=== PATIENT | female | born 1985 | race Hispanic/Latino ===

== ENCOUNTER → 2024-03-19 10:23 | Outpatient (CLI) | payer OTHER, SELFPAY ==
[2024-03-19 11:11] LABS: Add Manual Diff / Slide Review NO; Basophils Absolute Auto 200 /uL (0-100); Basophils Percent Auto 2.4 % (0-2); Eosinophils Absolute Auto 300 /uL (0-450); Eosinophils Percent Auto 3.2 % (2-4); Hematocrit 39.5 % (36-46); Hemoglobin 13.5 g/dL (12.0-16.0); Lymphocytes Absolute Auto 2700 /uL (1100-4500); Lymphocytes Percent Auto 32.7 % (25-40); Mean Corpuscular HGB Conc 34.2 % (30-36); Mean Corpuscular Volume 87.7 fL (80-100); Monocytes Absolute Auto 400 /uL (0-900); Monocytes Percent Auto 5.3 % (3-14); Neutrophils Absolute Auto 4600 /uL (1500-7000); Neutrophils Percent Auto 56.4 % (50-75); Platelet Count 284 X10^3/uL (150-400); Red Cell Distribution Width 13.1 % (11.6-14.8); White Blood Cell Count 8.1 X10^3/uL (4.5-11.0)
[2024-03-19 12:20] LABS: Alanine Aminotransferase 17 IU/L (<35); Albumin 4.5 g/dL (3.5-5.0); Albumin Globulin Ratio 1.6 (1.0-2.8); Alkaline Phosphatase 64 U/L (38-126); Aspartate Aminotransferase 26 IU/L (14-36); BUN Creatinine Ratio 23.5 (6-22); Bilirubin Total 0.5 mg/dL (0.2-1.3); Blood Urea Nitrogen 16 mg/dL (7-17); Calcium 9.1 mg/dL (8.4-10.2); Carbon Dioxide 26 mmol/L (22-32); Chloride 104 mmol/L (98-107); Cholesterol 187 mg/dL (140-199); Estimated Glomerular Filt Rate > 60 mL/min (>60); Globulin 2.9 g/dL (1.7-4.1); Glucose 103 mg/dL (70-100); HDL Cholesterol 44 mg/dL (40-60); HEMOLYSIS 34 (0-50); LDL Cholesterol Calculated 125 mg/dL (<100); Potassium 4.3 mmol/L (3.4-5.1); Sodium 138 mmol/L (137-145); Total Protein 7.4 g/dL (6.3-8.2); Triglycerides 89 mg/dL (35-150)
[2024-03-19 12:43] LABS: Hemoglobin A1C% w Est Avg Glu 5.7 % (4.0-6.0)
== END ==
PROVIDERS: PCP Family Medicine; Referring Provider Family Medicine; Visit Provider Family Medicine
DX: R73.03 Prediabetes (principal); I10 Essential (primary) hypertension
CPT/HCPCS: 36415; 80053; 80061; 83036; 85025

== ENCOUNTER → 2024-07-02 08:16 | Outpatient (CLI) | payer OTHER, SELFPAY ==
[2024-07-02 08:38] LABS: Add Manual Diff / Slide Review NO; Basophils Absolute Auto 100 /uL (0-100); Basophils Percent Auto 1.5 % (0-2); Eosinophils Absolute Auto 200 /uL (0-450); Eosinophils Percent Auto 2.4 % (2-4); Hematocrit 40.4 % (36-46); Hemoglobin 13.7 g/dL (12.0-16.0); Lymphocytes Absolute Auto 2400 /uL (1100-4500); Lymphocytes Percent Auto 29.9 % (25-40); Mean Corpuscular HGB Conc 33.9 % (30-36); Mean Corpuscular Hemoglobin 29.9 PG (26-34); Mean Corpuscular Volume 88.4 fL (80-100); Monocytes Absolute Auto 400 /uL (0-900); Monocytes Percent Auto 5.3 % (3-14); Neutrophils Absolute Auto 5000 /uL (1500-7000); Neutrophils Percent Auto 60.9 % (50-75); Platelet Count 297 X10^3/uL (150-400); Red Blood Cell Count 4.57 X10^6/uL (4.0-5.2); White Blood Cell Count 8.2 X10^3/uL (4.5-11.0)
[2024-07-02 08:49] LABS: Hemoglobin A1C% w Est Avg Glu 5.7 % (4.0-6.0)
[2024-07-02 08:58] LABS: Alanine Aminotransferase 22 IU/L (<35); Albumin 4.5 g/dL (3.5-5.0); Albumin Globulin Ratio 1.8 (1.0-2.8); Alkaline Phosphatase 68 U/L (38-126); Aspartate Aminotransferase 29 IU/L (14-36); BUN Creatinine Ratio 17.6 (6-22); Bilirubin Total 0.4 mg/dL (0.2-1.3); Blood Urea Nitrogen 12 mg/dL (7-17); Calcium 8.8 mg/dL (8.4-10.2); Carbon Dioxide 30 mmol/L (22-32); Chloride 102 mmol/L (98-107); Estimated Glomerular Filt Rate > 60 mL/min (>60); Globulin 2.5 g/dL (1.7-4.1); Glucose 102 mg/dL (70-100); HEMOLYSIS < 15 (0-50); Potassium 3.7 mmol/L (3.4-5.1); Sodium 138 mmol/L (137-145)
== END ==
PROVIDERS: PCP Family Medicine; Referring Provider Family Medicine; Visit Provider Family Medicine
DX: R73.03 Prediabetes (principal); I10 Essential (primary) hypertension; T14.8XXA Other injury of unspecified body region, initial encounter
CPT/HCPCS: 36415; 80053; 83036; 85025

== ENCOUNTER → 2024-07-11 15:00 | Outpatient (CLI) | payer OTHER, SELFPAY ==
--- NOTE | 2024-07-16 13:10 | DIET.OUTPTC ---
Dietary Outpatient Consultation Note Consultation Date: 07/11/2024 Assessment: 38 y F referred to dietitian for preDM and obesity. PMH of GDM. Met with pt via telehealth. Recently moved from [place]. in , has been gone on deployment, coming home soon. Pt has 3 kids. 1 month ago pt started meeting with graduate assistant athletic trainer. Does total body with graduate assistant athletic trainer 1x/wk for 30-45 minutes. Does at home workout 1-2x/wk for 30 minutes. Hopes that when returns will have more time to do walks. [facility] suggested pt do 1500 kcals and 90 g protein but deferred to dietitian/doctor as needed. Pt started tracking kcals to get within these perimeters. Has days where she tracks and does 1500 kcals, but other days she doesn't because difficult to track and stay within range. Feels guilty when not tracking or eating foods that are unhealthy/ too many kcals. Is hungry after workout. Open to discuss intuitive eating. Labs: A1c% 5.7% on 03/19/24 and 07/02/24. LDL 125 on 03/19/24 Diet recall: B-coffee w/ 09/24-1 c milk and 1 tsp sugar, turkey sausage and eggs OR cottage cheese/yogurt OR if not tracking various items i.e. banana bread S-cheese/cracker/ various snack items L-tuna/chicken or beef + veggie (salad with tomatoes) Dinner- same as lunch snack-crackers/chips/what kids are eating Beverages: water 40-60 fl oz Meal varies depending on if tracking kcals Ht: 4 ft 10 in Wt: 189 lb and 2 oz BMI: 39.5 UBW: 198 lb and 2 oz (-4.5% weight loss within 4-5 months) Nutrition Diagnosis: food and nutrition related knowledge deficit r/t new diagnosis aeb pt looking for eating reccs Interventions: Discussed and provided appropriate resources on the following -PreDM overview and lab meanings -Balanced meals, CHO servings at meals/counting, portion sizing CHO -Macronutrients and role in BG, fiber, amount/day -Label reading educ -Intuitive eating - preventing over restriction/tracking and over eating next day when not tracking with balanced meals and listening to hunger Goals-2-3 fibrous CHO servings with meals/plate method with CHO portion sizing, balanced snack after workout fibrous carb+protein, introduce walks as able when is back home EER: protein 60-75 g (1-1.25 g/kg adjusted IBW) Monitoring/Evaluations: f/u 6-8 wks Electronically Signed by: Katharina Narayan 07/16/24 13:10 Clinical Dietitian [address] [id number]
== END ==
LOC: DIET 07-16 09:44
PROVIDERS: PCP Family Medicine; Referring Provider Family Medicine
DX: R73.03 Prediabetes (principal); E66.9 Obesity, unspecified; Z68.39 Body mass index [BMI] 39.0-39.9, adult; Z86.32 Personal history of gestational diabetes; Z71.3 Dietary counseling and surveillance
CPT/HCPCS: 97802

== ENCOUNTER → 2024-08-29 16:53 | Outpatient (CLI) | payer OTHER, SELFPAY ==
--- NOTE | 2024-08-29 16:56 | DIET.OUTPTC ---
Dietary Outpatient Consultation Note Consultation Date: 08/29/2024 Assessment: 38 y F referred to dietitian for preDM and obesity. PMH of GDM. Met with pt via telehealth. Has been including portioned out fibrous carbs at meal times/trying new options out (i.e whole wheat spag. and quinoa) Continues with activity pattern. More difficult to walk outside with cold weather. Considering getting walking pad. Notes sometimes distracted snacking leads to over consumption of snacks foods (i.e chips). Labs: A1c% 5.7% on 03/19/24 and 07/02/24. LDL 125 on 03/19/24 Ht: 4 ft 10 in Wt: 189 lb and 2 oz BMI: 39.5 UBW: 198 lb and 2 oz (-4.5% weight loss within 4-5 months) Nutrition Diagnosis: (initial dx) food and nutrition related knowledge deficit r/t new diagnosis aeb pt looking for eating reccs Interventions: Discussed and provided appropriate resources on the following -Reviewed CHO types, amounts, servings, portions -Considering plant based proteins as options in place of portion of meat (i.e. supplementing ground beef with beans for tacos) -Reviewed pairing of CHO -Discussed activity r/t BG -Discussed the hunger-fullness scale and brainstormed ideas to help maintained portioned snacks Goals-add walking on walking pads, using hunger-fullness scale and pre-portioned snacks EER: protein 60-75 g (1-1.25 g/kg adjusted IBW) Monitoring/Evaluations: f/u 6 wks Electronically Signed by: Katharina Narayan 08/29/24 16:56 Clinical Dietitian [address] [id number]
== END ==
PROVIDERS: PCP Family Medicine; Referring Provider Family Medicine
DX: R73.03 Prediabetes (principal); E66.9 Obesity, unspecified; Z71.3 Dietary counseling and surveillance; Z86.32 Personal history of gestational diabetes; Z68.39 Body mass index [BMI] 39.0-39.9, adult
CPT/HCPCS: 97803

== ENCOUNTER → 2024-12-27 13:00 | Outpatient (CLI) | payer OTHER, SELFPAY ==
--- NOTE | 2025-01-20 16:19 | DIET.OUTPTC ---
Dietary Outpatient Consult Assessment: 38 y F referred to dietitian for preDM and obesity. PMH of GDM. Met with pt via telehealth. Has been working to increase activity with more walks. Wanting to work on including more fiber options. Labs: A1c% 5.7% on 03/19/24 and 07/02/24. LDL 125 on 03/19/24 Ht: 4 ft 10 in Wt: 189 lb and 2 oz BMI: 39.5 UBW: 198 lb and 2 oz (-4.5% weight loss within 4-5 months) Nutrition Diagnosis: (initial dx) food and nutrition related knowledge deficit r/t new diagnosis aeb pt looking for eating reccs Interventions: Discussed and provided appropriate resources on the following -Reviewed dietary intakes and discussed goals for consistent CHO, aiming for 25-28 g fiber, sources and switches -Reviewed physical activity regimen Goals-add 1 more day weight based training EER: protein 60-75 g (1-1.25 g/kg adjusted IBW) Monitoring/Evaluations: f/u 3 months Electronically Signed by: Katharina Narayan Clinical Dietitian [address] [address]
== END ==
PROVIDERS: PCP Family Medicine; Referring Provider Family Medicine
DX: R73.03 Prediabetes (principal); Z87.59 Personal history of other complications of pregnancy, childbirth and the puerperium; Z71.3 Dietary counseling and surveillance; Z68.39 Body mass index [BMI] 39.0-39.9, adult
CPT/HCPCS: 97803

== ENCOUNTER → 2024-12-28 08:08 | Outpatient (CLI) | payer OTHER, SELFPAY ==
[2024-12-28 09:10] LABS: Add Manual Diff / Slide Review NO; Basophils Absolute Auto 100 /uL (0-100); Basophils Percent Auto 1.5 % (0-2); Eosinophils Absolute Auto 200 /uL (0-450); Eosinophils Percent Auto 3.2 % (2-4); Hematocrit 41.3 % (36-46); Lymphocytes Absolute Auto 1600 /uL (1100-4500); Lymphocytes Percent Auto 24.5 % (25-40); Mean Corpuscular HGB Conc 33.8 % (30-36); Mean Corpuscular Hemoglobin 29.9 PG (26-34); Mean Corpuscular Volume 88.5 fL (80-100); Monocytes Absolute Auto 500 /uL (0-900); Monocytes Percent Auto 7.3 % (3-14); Neutrophils Absolute Auto 4100 /uL (1500-7000); Neutrophils Percent Auto 63.5 % (50-75); Platelet Count 255 X10^3/uL (150-400); Red Blood Cell Count 4.67 X10^6/uL (4.0-5.2); Red Cell Distribution Width 13.2 % (11.6-14.8); White Blood Cell Count 6.4 X10^3/uL (4.5-11.0)
[2024-12-28 09:16] LABS: Hemoglobin A1C% w Est Avg Glu 5.6 % (4.0-6.0)
[2024-12-28 09:19] LABS: Alanine Aminotransferase 23 IU/L (<35); Albumin 4.6 g/dL (3.5-5.0); Albumin Globulin Ratio 1.7 (1.0-2.8); Alkaline Phosphatase 75 U/L (38-126); Aspartate Aminotransferase 35 IU/L (14-36); BUN Creatinine Ratio 17.6 (6-22); Bilirubin Total 0.5 mg/dL (0.2-1.3); Blood Urea Nitrogen 12 mg/dL (7-17); Calcium 9.2 mg/dL (8.4-10.2); Carbon Dioxide 26 mmol/L (22-32); Chloride 102 mmol/L (98-107); Cholesterol 198 mg/dL (140-199); Estimated Glomerular Filt Rate > 60 mL/min (>60); Globulin 2.7 g/dL (1.7-4.1); Glucose 102 mg/dL (70-99); HDL Cholesterol 50 mg/dL (40-60); HEMOLYSIS < 15 (0-50); LDL Cholesterol Calculated 124 mg/dL (<100); Potassium 4.3 mmol/L (3.4-5.1); Sodium 138 mmol/L (137-145); Total Protein 7.3 g/dL (6.3-8.2); Triglycerides 118 mg/dL (35-150)
== END ==
PROVIDERS: PCP Family Medicine; Referring Provider Family Medicine; Visit Provider Family Medicine
DX: R73.03 Prediabetes (principal); I10 Essential (primary) hypertension
CPT/HCPCS: 36415; 80053; 80061; 83036; 85025